=== PATIENT | female | born 1970 | race Caucasian/White ===

== ENCOUNTER 2019-12-06 07:00 | Day surgery (SDC) | payer OTHER ==
[~2019-12-06] VITALS: Ht 170.2 cm; Wt 59.4 kg
[~2019-12-06 07:00] MED LIST: LOTREL 5-20 MG1 CAP PO
== END 2019-12-06 13:00 | disposition home or self-care (01) ==
LOC: SURH 07:00 → CIR.AMB 07:00 → O/R 07:00 → SURH 07:02 → EDSTATUS 09:00 → CIR.AMB 13:00 → SURH 14:21 → O/R 16:55
PROVIDERS: Plastic Surgery; Surgery
PROC: 0HHU0NZ Insertion of Tissue Expander into Left Breast, Open Approach (ICD-10-PCS; 2019-12-06)
PROC: 0HPU0JZ Removal of Synthetic Substitute from Left Breast, Open Approach (ICD-10-PCS; 2019-12-06)
PROC: 07B60ZZ Excision of Left Axillary Lymphatic, Open Approach (ICD-10-PCS; principal; 2019-12-06 09:00)
PROC: 0HTU0ZZ Resection of Left Breast, Open Approach (ICD-10-PCS; 2019-12-06 09:00)
DX: D05.12 Intraductal carcinoma in situ of left breast (principal); Z90.12 Acquired absence of left breast and nipple; Z41.1 Encounter for cosmetic surgery

== ENCOUNTER 2019-12-27 09:31 | Outpatient (CLI) | payer OTHER | END 2019-12-27 10:01 | disposition home or self-care (01) | LOC: SONOGRAMA 09:31 | DX: N64.89 Other specified disorders of breast (principal); C50.412 Malignant neoplasm of upper-outer quadrant of left female breast ==

== ENCOUNTER 2020-06-19 08:56 | Day surgery (SDC) | payer OTHER ==
[~2020-06-19 08:56] MED LIST changes: +[UNRECOGNIZED DRUG - OTHER] PO
== END 2020-06-19 17:40 | disposition home or self-care (01) ==
LOC: CIR.AMB 08:56
PROVIDERS: ATTEND Plastic Surgery
DX: N65.1 Disproportion of reconstructed breast (principal); Z90.12 Acquired absence of left breast and nipple; Z41.1 Encounter for cosmetic surgery; Z20.828 Contact with and (suspected) exposure to other viral communicable diseases